=== PATIENT | female | born 1985 | race Caucasian/White ===

== ENCOUNTER 2024-06-03 15:50 | Emergency (ER) | payer SELFPAY ==
[2024-06-03 15:51] VITALS: BP 161/111
[2024-06-03 16:01] VITALS: BMI 37.6
[2024-06-03 16:05] VITALS: BP 140/89
[2024-06-03] MEDS: NSS 1000 IV (16:25)
[2024-06-03] MEDS: ZOFRAN 4 MG IV (16:25)
[2024-06-03 16:29] LABS: % Basophils 0.9 % (0-2); % Eosinophils 0.4 % (0-6); % Immature Granulocytes 0.2 % (0-0.5); % Lymphocytes 47.1 % (20.5-51.1); % Monocytes 8.9 % (1.7-9.3); % Neutrophils 42.5 % (42.2-75.2); Absolute Basophils 0.1 10^3/uL (0-0.2); Absolute Lymphocytes 2.6 10^3/uL (1.2-3.4); Absolute Monocytes 0.5 10^3/uL (0.1-0.6); Absolute Neutrophils 2.3 10^3/uL (1.4-6.5); Hematocrit 43.5 % (37.0-47.0); Hemoglobin 15.2 g/dL (12.0-16.0); Mean Corp Hgb Conc. 34.9 g/dL (33.0-37.0); Mean Corpuscular Volume 88.8 fL (81.0-99.0); Mean Platelet Volume 9.3 fL (7.4-10.4); Nucleated Red Blood Cells % 0 %; Platelet Count 302 10^3/uL (130-400); Red Cell Dist. Width 13.7 % (11.5-14.5); White Blood Cell Count 5.5 10^3/uL (4.8-10.8)
[2024-06-03 16:40] LABS: ALT (SGPT) 66 U/L (0-35); AST (SGOT) 151 U/L (14-36); Albumin 4.2 g/dl (3.5-5.0); Alkaline Phosphatase 146 U/L (38-126); Blood Urea Nitrogen 11 mg/dl (7-17); Calcium 8.7 mg/dl (8.4-10.2); Carbon Dioxide 20 mmol/L (22-30); Chloride 107 mmol/L (98-107); Estimated Creatinine Clearance 112 ml/min; Glucose 132 mg/dl (70-99); Potassium 4.7 mmol/L (3.5-5.1); Sodium 141 mmol/L (135-145); Total Bilirubin 0.5 mg/dl (0.2-1.3); Total Protein 7.1 g/dl (6.3-8.2); eGFR > 60.00
[2024-06-03 16:51] LABS: Lipase 251 U/L (23-300)
--- NOTE | 2024-06-03 16:51 | CM ---
CM met with patient in room to discuss insurance. 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 CM provided patient with information on [facility] and patient financial services.
Patient became tearful stating that she has not been out of bed for 4 days and feels 'terrible'. Patient also stated that she has chronic anxiety and her medical bills are a great concern for her. CM provided emotional support.
CM updated bedside RN.
[2024-06-03 17:00] VITALS: BP 121/84
[2024-06-03 18:00] VITALS: BP 119/94
--- NOTE | 2024-06-03 18:18 | ED.GENMED ---
History of Present Illness
General
Chief Complaint: Abdominal Symptoms
Time Seen by Provider: 06/03/24 15:58
History of Present Illness
History of Present Illness:
38-year-old female with history of GERD presents to the emergency department for evaluation of generalized lower abdominal pain as well as nausea vomiting and diarrhea for the past 4 to 5 days. Pain is quite mild at this time. No recent suspicious
food intake or international travel. Has been unable to tolerate p.o. fluids today and feels weak and fatigued. No prior abdominal surgeries
Past History
Past History
ED Past Medical History: Asthma
ED Past Surgical History: None
Social History
Tobacco: Former smoker
Alcohol: Occasional
Drug: Marijuana
Personal: Single
Living: alone
Employment: Employed
Review of Systems
Review of Systems
Allergies reviewed?: Yes
All Other Systems: ROS reviewed and negative except as documented in HPI and ROS
Phy Exam
Physical Exam
Physical Exam:
GEN: Well appearing, NAD, WDWN
HEENT: Oral mucosa moist, no scleral icterus
Cardiac: Regular rate
Lung: No respiratory distress, no tachypnea
Abdomen: Soft, grossly non tender
MSK: No gross deformity or injuries
Skin: Good color, no pallor or jaundice, no rashes
Neuro: AO x3, moves all extremities freely
Psych: Calm, cooperative
Course
Orders/Labs/Results
Orders:
Orders
06/03/24 16:19
Case Management Consult ONCE
Case Management Consult: Other
Requested By:: NURSING
Comment: PT. with mental health hx and no health insurance.
CMP [Comprehensive Metabolic Panel] Urgent
Complete Blood Count/With Diff Urgent
Lipase Urgent
06/03/24 16:23
0.9% Sodium Chloride 1000 ml [Nss] 1,000 ml IV BOLUS
Ondansetron Injectable [Zofran] 4 mg IV NOW STA
06/03/24 16:24
Ondansetron Injectable [Zofran] 4 mg .ROUTE .STK-MED ONE
Abnormal Lab Results
06/03/24
16:19
Carbon Dioxide 20 L mmol/L
(22-30)
Glucose 132 H mg/dl
(70-99)
AST 151 H U/L
(14-36)
ALT 66 H U/L
(0-35)
Alkaline Phosphatase 146 H U/L
(38-126)
06/03/24 16:19
06/03/24 16:19
Vital Signs
Initial and Last Documented VS:
Initial Vital Signs
Temp Pulse Resp BP Pulse Ox
98.8 F 124 18 161/111 97
06/03/24 15:51 06/03/24 15:51 06/03/24 15:51 06/03/24 15:51 06/03/24 15:51
Last Documented Vital Signs
Temp Pulse Resp BP Pulse Ox
98.8 F 124 18 119/94 99
06/03/24 15:51 06/03/24 15:51 06/03/24 15:51 06/03/24 18:00 06/03/24 18:00
MDM/Problems Addressed
MDM/Problems Addressed:
Patient's abdominal exam is benign, labs are reassuring, she does have mild transaminitis however this is likely reactive due to frequent vomiting as she has no right upper quadrant tenderness warranting biliary workup at this time.
*Critical Care Note
Total Time (30-74mins, 75-104mins- exclusive of procedures): Not Applicable
ED Attending Note
-
Portions of this chart may have been created with voice recognition software.� Occasional wrong word or��sound alike� substitutions may have occurred due to the inherent limitations of voice recognition software.
Discharge Plan
Departure
Patient Disposition: Home (Routine Discharge)
Date of Disposition: 06/03/24
Time of Disposition: 18:18
Patient with high blood pressure during this ER visit?: No
Discharge Problem:
Nausea & vomiting
Instructions: Nausea and Vomiting, Adult (DC)
Prescriptions:
New
ondansetron 4 mg tablet,disintegrating
4 mg PO TIDPRN PRN (Reason: nausea/vomiting) Qty: 10 0RF
No Action
desloratadine [Clarinex] 5 MG tablet
5 mg PO DAILY PRN (Reason: allergies)
albuterol [Proventil] 17 GM aerosol
17 gm IH PRN (Reason: asthma)
sulfamethoxazole-trimethoprim 800 MG/160 MG tablet
1 tab PO BID Qty: 14 0RF
cefadroxil [Duricef] 500 MG capsule
500 mg PO BID Qty: 14 0RF
mupirocin 2 % ointment
1 applic topical TID Qty: 30 1RF
prednisone 20 mg tablet
40 mg PO DAILY Qty: 8 0RF
prednisone 50 mg Tablet
50 mg PO DAILY Qty: 3 0RF
amoxicillin-pot clavulanate 875-125 mg tablet
1 tab PO Q12H Qty: 13 0RF
albuterol sulfate [ProAir HFA] 90 mcg/actuation Hfa Aerosol Inhaler
2 puff INHALATION Q4HPRN PRN (Reason: shortness of breath) Qty: 8.5 0RF
Referrals:
Kasia Donovan PA [Family Provider] -
Stand Alone Forms: Return to Work
Interventions
Interventions:
*Risk Screen - Suicide Last Done: 06/03/24 15:51
*General Assessment Last Done: 06/03/24 15:51
*Neglect/Abuse Screening Last Done: 06/03/24 15:51
*ED- Fall Risk Assessment Last Done: 06/03/24 16:01
*ED COVID-19 Vaccine History Last Done: 06/03/24 15:51
*Nursing Disposition Last Done: 06/03/24 18:26
DC-Dcyhyh-Jdtwgjmgyn Assessment Last Done: 06/03/24 16:01
Discharge Date and Time
Discharge Date/Time: 06/03/24 18:26
Print Language: IRAQI
== END 2024-06-03 18:26 | disposition home or self-care (01) ==
LOC: EMR 15:50
PROVIDERS: Physician Assistant; EMERGENCY PHYSICIAN Emergency Medicine; FAMILY PHYSICIAN Physician Assistant Medical
DX: R11.2 Nausea with vomiting, unspecified (principal); R19.7 Diarrhea, unspecified; K21.9 Gastro-esophageal reflux disease without esophagitis; J45.909 Unspecified asthma, uncomplicated; Z87.891 Personal history of nicotine dependence
CPT/HCPCS: 99283; 96374; 96361; 80053; 83690; 85025

== ENCOUNTER 2024-12-01 21:06 | Inpatient (IN) | payer SELFPAY ==
[2024-12-01 15:49] VITALS: BP 168/118
[2024-12-01 16:20] LABS: Hematocrit 40.4 % (37.0-47.0); Hemoglobin 13.7 g/dL (12.0-16.0); Mean Corp Hgb Conc. 33.9 g/dL (33.0-37.0); Mean Corpuscular Volume 90.4 fL (81.0-99.0); Nucleated Red Blood Cells % 0 %; Platelet Count 142 10^3/uL (130-400); Red Cell Dist. Width 13.5 % (11.5-14.5)
[2024-12-01 16:24] LABS: HCG, Serum Qualitative Screen Negative
[2024-12-01 16:38] LABS: ALT (SGPT) 340 U/L (0-35); Albumin 4.3 g/dl (3.5-5.0); Alkaline Phosphatase 143 U/L (38-126); Blood Urea Nitrogen 7 mg/dl (7-17); Calcium 8.8 mg/dl (8.4-10.2); Carbon Dioxide 22 mmol/L (22-30); Chloride 101 mmol/L (98-107); Glucose 137 mg/dl (70-99); Lipase 299 U/L (23-300); Potassium 3.9 mmol/L (3.5-5.1); Sodium 131 mmol/L (135-145); Total Protein 7.1 g/dl (6.3-8.2); eGFR > 60.00
[2024-12-01 16:41] LABS: AST (SGOT) 1027 U/L (14-36)
--- NOTE | 2024-12-01 17:12 | ED.GENMED ---
History of Present Illness
<Seema Singer NP - Last Filed: 12/01/24 23:55>
General
Chief Complaint: Abdominal Symptoms
Source: patient
Exam Limitations: none
Time Seen by Provider: 12/01/24 17:06
Nursing documentation reviewed up to this point in time: agreed with
History of Present Illness
History of Present Illness:
Patient to ED with complaint of upper abd. pain, n/v. Symptoms started on Friday evening. States she has been unable to eat or drink due to n/v. No prior history of same. Denies fever/chills. Brought self to ED for eval.
Past History
<Seema Singer NP - Last Filed: 12/01/24 23:55>
Past History
ED Past Medical History: Asthma
ED Past Surgical History: Other (Misty Fundoplication age 3)
Social History
Tobacco: Former smoker
Alcohol: Occasional
Drug: Marijuana
Personal: Single
Living: alone
Employment: Employed
Review of Systems
<Seema Singer NP - Last Filed: 12/01/24 23:55>
Review of Systems
Allergies reviewed?: Yes
All Other Systems: ROS reviewed and negative except as documented in HPI and ROS
Constitutional: Reports no symptoms
EENT: Reports no symptoms
Respiratory: Reports no symptoms
Cardiac: Reports no symptoms
ABD/GI: Reports abdominal pain (upper abd.), nausea and vomiting
: Reports no symptoms
Musculoskeletal: Reports no symptoms
Skin: Reports no symptoms
Neurological: Reports no symptoms
Psychiatric: Reports no symptoms
Phy Exam
<Seema Singer NP - Last Filed: 12/01/24 23:55>
General Physical Exam
General Presentation: moderate distress
General age: appears stated age
General Skin: warm and dry
General Habitus: normal
General Mental: alert
General Hydration: dry mucous membranes
Course
<Seema Singer NP - Last Filed: 12/01/24 23:55>
Orders/Labs/Results
Orders:
Orders
12/01/24 Dinner
Clear Liquid
At Your Request: Full Participation
12/01/24 15:53
Test Result ONCE
12/01/24 15:56
Complete Blood Count/With Diff Urgent
Comprehensive Metabolic Panel Urgent
HCG, Serum Qualitative Screen Urgent
Lipase Urgent
Monotest Urgent
Comment: ADD ON
12/01/24 17:13
0.9% Sodium Chloride 1000 ml [Nss] 1,000 ml IV BOLUS
Ondansetron Injectable [Zofran] 4 mg IV NOW STA
US Abdomen Complete/Upper Urgent
Comment:
Reason For Exam: upper abd. pain, elevated LFTs, tbili
12/01/24 17:14
Add On- LAB Urgent
Tests Added?: HCG serum qualitative
12/01/24 17:27
Add On- LAB Urgent
Tests Added?: mononucleosis
12/01/24 17:44
Hepatitis A IgM Antibody Urgent
Hepatitis B Core Ab, IgM Urgent
Hepatitis B Surface Antibody Urgent
Hepatitis B Surface Antigen Urgent
Hepatitis C Antibody Urgent
12/01/24 18:41
Urinalysis Reflex To Culture Urgent
Date Specimen was Collected: 12/01/24
Time Specimen was Collected: 18:33
Urine Microscopic Reflex Cult Urgent
Urine Culture Urgent
JASMEET Source: U
Specimen Description:
Date Specimen was Collected: 12/01/24
Time Specimen was Collected: 18:33
12/01/24 20:43
Admit/Transfer Patient As Directed
Co-Sign Provider:
Level of Care: Inpatient admission
Assign to:: Medical/Surgical
Physician / Group: lani
Diagnosis: choledocolithiasis
Reason for Hospitalization: choledocolithiasis
Expected length of stay greater than two midnights?: Yes
ELOS- Estimated Length of Stay in days: 2
I certify the patient meets the requirements for IP care: Yes
Code Status As Directed
Resuscitation Status: Full Code
PRN Pain Medication Management As Directed
May give lesser potent ordered pain med per pt: Yes
preference::
Protocol:: Medication orders for pain may be administered in a
manner that supports deferring to patient preference
when the pt is:
- Requesting an ordered lesser potent pain medication.
Least to most potent pain medications are defined
as: acetaminophen < NSAID < tramadol < opioids
(morphine, oxycodone, hydromorphone).
- Requesting a lesser dose of the same medication IF
ORDERED.
- Requesting a less intrusive route of administration
if both routes are prescribed by the provider (PO <
IV).
12/01/24 21:43
Acetaminophen [Tylenol] 650 mg PO Q4HPRN PRN
Albuterol [ProAIR HFA INHALER] 2 puff INH R Q6HPRN PRN sob
HYDROmorphone [Dilaudid] 0.5 mg IV Q4HPRN PRN
Ondansetron Injectable [Zofran] 4 mg IV Q6HPRN PRN
12/01/24 21:43
Activity As Directed
Activity Level: As Tolerated
Vital Signs As Directed
Frequency: Per unit guidelines
DX Deep Vein Thrombosis Video Routine
12/02/24 08:00
Complete Blood Count/With Diff IN AM
Comprehensive Metabolic Panel IN AM
Escitalopram Oxalate [Lexapro] 5 mg PO DAILY
Heparin 5,000 units SC Q12
Abnormal Lab Results
12/01/24 12/01/24
15:56 18:41
Absolute Lymphs (auto) 1.0 L 10^3/uL
(1.2-3.4)
Neutrophils % 83.0 H %
(42.2-75.2)
Lymphocytes % 14.4 L %
(20.5-51.1)
Monocytes % 1.3 L %
(1.7-9.3)
Sodium 131 L mmol/L
(135-145)
Glucose 137 H mg/dl
(70-99)
Total Bilirubin 2.2 H mg/dl
(0.2-1.3)
AST 1027 H* U/L
(14-36)
ALT 340 H U/L
(0-35)
Alkaline Phosphatase 143 H U/L
(38-126)
Urine Ketones 3+ A
(Negative)
Ur Occult Blood Reflex 2+ A
(Negative)
Urine Nitrite (Reflex) Positive A
(Negative)
Urine Bilirubin 1+ A
(Negative)
Urine Urobilinogen 2+ A
(Neg - 1+)
Leukocyte Esterase Rfl 1+ A
(Negative)
Urine RBC 3-6 A /HPF
(0-2)
Urine Bacteria (Reflex) Many A
(Negative)
Urine Albumin (Reflex) 2+ A
(Neg - Trace)
12/01/24 15:56
12/01/24 15:56
Vital Signs
Initial and Last Documented VS:
Initial Vital Signs
Temp Pulse Resp BP Pulse Ox
98.4 F 115 16 168/118 98
12/01/24 15:49 12/01/24 15:49 12/01/24 15:49 12/01/24 15:49 12/01/24 15:49
Last Documented Vital Signs
Temp Pulse Resp BP Pulse Ox
99.1 F 82 16 136/98 99
12/02/24 07:10 12/02/24 07:10 12/02/24 07:10 12/02/24 07:10 12/02/24 07:10
<Aneul Powers MD - Last Filed: 12/02/24 11:03>
Orders/Labs/Results
Orders:
Orders
12/01/24 Dinner
Clear Liquid
At Your Request: Full Participation
12/01/24 15:53
Test Result ONCE
12/01/24 15:56
Complete Blood Count/With Diff Urgent
Comprehensive Metabolic Panel Urgent
HCG, Serum Qualitative Screen Urgent
Lipase Urgent
Monotest Urgent
Comment: ADD ON
12/01/24 17:13
0.9% Sodium Chloride 1000 ml [Nss] 1,000 ml IV BOLUS
Ondansetron Injectable [Zofran] 4 mg IV NOW STA
US Abdomen Complete/Upper Urgent
Comment:
Reason For Exam: upper abd. pain, elevated LFTs, tbili
12/01/24 17:14
Add On- LAB Urgent
Tests Added?: HCG serum qualitative
12/01/24 17:27
Add On- LAB Urgent
Tests Added?: mononucleosis
12/01/24 17:44
Hepatitis A IgM Antibody Urgent
Hepatitis B Core Ab, IgM Urgent
Hepatitis B Surface Antibody Urgent
Hepatitis B Surface Antigen Urgent
Hepatitis C Antibody Urgent
12/01/24 18:41
Urinalysis Reflex To Culture Urgent
Date Specimen was Collected: 12/01/24
Time Specimen was Collected: 18:33
Urine Microscopic Reflex Cult Urgent
Urine Culture Urgent
JASMEET Source: U
Specimen Description:
Date Specimen was Collected: 12/01/24
Time Specimen was Collected: 18:33
12/01/24 20:43
Admit/Transfer Patient As Directed
Co-Sign Provider:
Level of Care: Inpatient admission
Assign to:: Medical/Surgical
Physician / Group: lani
Diagnosis: choledocolithiasis
Reason for Hospitalization: choledocolithiasis
Expected length of stay greater than two midnights?: Yes
ELOS- Estimated Length of Stay in days: 2
I certify the patient meets the requirements for IP care: Yes
Code Status As Directed
Resuscitation Status: Full Code
PRN Pain Medication Management As Directed
May give lesser potent ordered pain med per pt: Yes
preference::
Protocol:: Medication orders for pain may be administered in a
manner that supports deferring to patient preference
when the pt is:
- Requesting an ordered lesser potent pain medication.
Least to most potent pain medications are defined
as: acetaminophen < NSAID < tramadol < opioids
(morphine, oxycodone, hydromorphone).
- Requesting a lesser dose of the same medication IF
ORDERED.
- Requesting a less intrusive route of administration
if both routes are prescribed by the provider (PO <
IV).
12/01/24 21:43
Acetaminophen [Tylenol] 650 mg PO Q4HPRN PRN
Albuterol [ProAIR HFA INHALER] 2 puff INH R Q6HPRN PRN sob
HYDROmorphone [Dilaudid] 0.5 mg IV Q4HPRN PRN
Ondansetron Injectable [Zofran] 4 mg IV Q6HPRN PRN
12/01/24 21:43
Activity As Directed
Activity Level: As Tolerated
Vital Signs As Directed
Frequency: Per unit guidelines
DX Deep Vein Thrombosis Video Routine
12/02/24 08:00
Complete Blood Count/With Diff IN AM
Comprehensive Metabolic Panel IN AM
Escitalopram Oxalate [Lexapro] 5 mg PO DAILY
Heparin 5,000 units SC Q12
Abnormal Lab Results
12/01/24 12/01/24
15:56 18:41
Absolute Lymphs (auto) 1.0 L 10^3/uL
(1.2-3.4)
Neutrophils % 83.0 H %
(42.2-75.2)
Lymphocytes % 14.4 L %
(20.5-51.1)
Monocytes % 1.3 L %
(1.7-9.3)
Sodium 131 L mmol/L
(135-145)
Glucose 137 H mg/dl
(70-99)
Total Bilirubin 2.2 H mg/dl
(0.2-1.3)
AST 1027 H* U/L
(14-36)
ALT 340 H U/L
(0-35)
Alkaline Phosphatase 143 H U/L
(38-126)
Urine Ketones 3+ A
(Negative)
Ur Occult Blood Reflex 2+ A
(Negative)
Urine Nitrite (Reflex) Positive A
(Negative)
Urine Bilirubin 1+ A
(Negative)
Urine Urobilinogen 2+ A
(Neg - 1+)
Leukocyte Esterase Rfl 1+ A
(Negative)
Urine RBC 3-6 A /HPF
(0-2)
Urine Bacteria (Reflex) Many A
(Negative)
Urine Albumin (Reflex) 2+ A
(Neg - Trace)
12/01/24 15:56
12/01/24 15:56
Vital Signs
Initial and Last Documented VS:
Initial Vital Signs
Temp Pulse Resp BP Pulse Ox
98.4 F 115 16 168/118 98
12/01/24 15:49 12/01/24 15:49 12/01/24 15:49 12/01/24 15:49 12/01/24 15:49
Last Documented Vital Signs
Temp Pulse Resp BP Pulse Ox
99.1 F 82 16 136/98 99
12/02/24 07:10 12/02/24 07:10 12/02/24 07:10 12/02/24 07:10 12/02/24 07:10
<Seema Singer NP - Last Filed: 12/01/24 23:55>
*Radiology
Radiology exam reviewed: radiology read reviewed
*Pulse Oximetry
SaO2: 98
Oxygen Mode of Delivery: Room air
Patient hypoxic: no
*Critical Care Note
Total Time (30-74mins, 75-104mins- exclusive of procedures): Not Applicable
<Seema Singer NP - Last Filed: 12/01/24 23:55>
Update Note
Update Note:
patient to ED with complaint of upper abd. pain, n/v x 3 days. Labs reviewed. AST 1027. ALT 340. Alk phos 143 Tbili 2.2 [place] neg. Hepatitis panel pending. Abdominal US Mild hepatomegaly, hepatic fatty infiltration. Bile ducts, gallbladder
normal. Case discussed with Dr. Powers who also evaluated this patient. Will admit to hospitalist for LFT elevation, abdominal pain/vomiting dehydration.
ED Attending Note
<Seema Singer NP - Last Filed: 12/01/24 23:55>
-
Portions of this chart may have been created with voice recognition software.� Occasional wrong word or��sound alike� substitutions may have occurred due to the inherent limitations of voice recognition software.
<Anuel Powers MD - Last Filed: 12/02/24 11:03>
ED Attending Note
Patient seen and examined by attending physician: Yes
ED Attending Note:
Patient presents to ED secondary to 3-day history of persistent nausea, vomiting, along with 24 history of diarrhea. Patient started to experience abdominal cramping sensation today. Of note, over the weekend, patient did experience chills and
body ache along with URI symptoms, which now have improved. Denies headache. Denies neck pain. Denies sore throat. Denies coughing. Denies rash. Denies recent travel or surgery. Denies sick contact. Denies previous history of similar
symptoms.
Physical Exam
General: mild distress, not acutely ill. afebrile
Head: nc/at. eomi
Neck: supple. no meningeal signs. normal posterior pharynx
Heart: s1/s2 regular rate and rhythm
Lungs: no acute respiratory distress. clear bilaterally
Abdomen: normal bowel sounds. not tender. mild epigastric tenderness to palpation
Neuro: alert and oriented x 3. no focal neurological deficits
Skin: no rash
Psychiatric: well kept. interactive and cooperative
Extremities: no edema. no calf tenderness.
Blood work reviewed and discussed with patient. Abdominal ultrasound pending. Will check mono as well as hepatitis panel.
Abd US report reviewed. Pt will be admitted for further evaluation and treatment, with abnormal LFTs with continual symptoms.
Discharge Plan
Departure
Patient Disposition: Admit
Date of Disposition: 12/01/24
Time of Disposition: 20:19
Presentation/result/management discussed w/ accepting MD/DO: Hospitalist
Patient with high blood pressure during this ER visit?: No
Condition: Fair
Covid-19: Not Applicable
Discharge Problem:
Elevated LFTs, Vomiting
Interventions
Interventions:
*Risk Screen - Suicide Last Done: 12/01/24 21:45
*General Assessment Last Done: 12/01/24 15:49
*Neglect/Abuse Screening Last Done: 12/01/24 15:49
*ED- Fall Risk Assessment Last Done: 12/01/24 15:49
*ED COVID-19 Vaccine History Last Done: 12/01/24 21:45
*Nursing Disposition Last Done: 12/01/24 21:57
KZ-Ccwqgb-Yxhnibfkcv Assessment Last Done: 12/01/24 17:11
Discharge Date and Time
Discharge Date/Time: 12/01/24 21:58
[2024-12-01] MEDS: ZOFRAN 4 MG IV (17:20)
[2024-12-01] MEDS: NSS 1000 IV (17:20)
[2024-12-01 18:00] VITALS: BP 127/100
[2024-12-01 18:49] LABS: Urine Character Cloudy (Clear)
[2024-12-01 19:04] LABS: Urine Squamous Cell >30 /LPF (Few)
--- NOTE | 2024-12-01 20:45 | HPS.HSE ---
Family Physician
-
Family Physician: Missy Servin
Chief Complaint
-
abdminal pain
History of Present Illness
39-year-old female past medical history of asthma, depression, hiatal hernia/GERD status post Misty fundoplication as a child presenting with epigastric abdominal pain and nausea and vomiting starting 2 days ago as well as diarrhea. 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 No fevers or chills. She has been eating very minimally. She denies any history of gallstones. No recent travel history.
She has had pain like this in the past precipitated by eating certain foods. Her mother had her gallbladder taken out.
Denies smoking or alcohol use. Did use marijuana in the past.
Medical History
Past Medical History
Past Medical History: Reports Other (asthma, depression, hiatal hernia/GERD status post Misty fundoplication as a child)
Past Surgical History: Reports Other ( Bilateral knee surgery, sinus surgery, tonsillectomy, Misty fundoplication)
Social History
Tobacco: Non-smoker
Alcohol: None
Drug: None
Family History
Family History: Not pertinent
Allergies / Home Medications
Allergies reflects when Allergies were last updated in [employer].
Home Medications with original date entered in [employer]
Allergy/Medication List:
Allergies
Allergy/AdvReac Type Severity Reaction Status Date / Time
clarithromycin (From Biaxin) Allergy Nausea Verified 12/01/24 15:52
ibuprofen Allergy Hives Verified 12/01/24 15:52
latex Allergy Rash Verified 12/01/24 15:52
biaxin Allergy Nausea Uncoded 12/01/24 15:52
Home Medications
albuterol sulfate 90 mcg/actuation aerosol inhaler 2 puff inhalation R Q6HPRN PRN sob 12/01/24
escitalopram oxalate 5 mg tablet (Lexapro) 5 mg PO DAILY 12/01/24
Review of Systems
-
Constitutional: Reports No Symptoms
EENT: Reports No Symptoms
Respiratory: Reports No Symptoms
Cardiac: Reports No Symptoms
Abdomen/GI: Reports See HPI
: Reports No Symptoms
Musculoskeletal: Reports No Symptoms
Skin: Reports No Symptoms
Neurological: Reports No Symptoms
Endocrine: Reports No Symptoms
Hematologic/Lymphatic: Reports No Symptoms
Psych: Reports No Symptoms
Physical Exam
Vital Signs
Vital Signs
Temp Pulse Resp BP Pulse Ox
98.4 F 115 16 127/100 97
12/01/24 15:49 12/01/24 15:49 12/01/24 15:49 12/01/24 18:00 12/01/24 18:30
Physical Exam
General: Well Developed, Well Nourished and No Apparent Distress
HEENT: NormoCephalic, Moist mucous membranes and Atraumatic
Respiratory: Clear
Cardiac: S1/S2 and Regular Rhythm; No Murmur or Rub
GI: Soft, Non Distended, Normal Bowel Sounds and Tender (epigastric ); No Organomegaly
Rectal: Deferred by Provider
Musculoskeletal: No Clubbing, No Cyanosis and No Edema
Skin: No Rash
Neuro: Nonfocal/grossly intact
Laboratory Results
-
12/01/24 15:56
12/01/24 15:56
Laboratory Results
Total Bilirubin 2.2 mg/dl (0.2-1.3) H 12/01/24 15:56
AST 1027 U/L (14-36) H* 12/01/24 15:56
ALT 340 U/L (0-35) H 12/01/24 15:56
Alkaline Phosphatase 143 U/L (38-126) H 12/01/24 15:56
Lipase 299 U/L (23-300) 12/01/24 15:56
Data Reviewed
-
Lab Data: Labs Reviewed by me
Old Records: Reviewed
Impression/Plan
-
IMPRESSION:
PLAN:
# Likely acute choledocholithiasis
# Transaminitis/hyperbilirubinemia
- Ultrasound liver shows mild hepatomegaly, gallbladder is physiologically distended fluid and shows no shadowing calculi or wall thickening, common bile duct 5 mm
- Hepatitis panel pending
- Check MRI/MRCP abdomen
- GI consulted
- Clear liquid diet
- Hold off antibiotics for now
- Zofran, Dilaudid as needed
Asthma
- Continue albuterol
Anxiety/depression
- Continue Lexapro
GERD/hiatal hernia status post Misty fundoplication as a child
Full code
DVT prophylaxis�heparin
Regular diet
--- NOTE | 2024-12-01 21:42 | PTCARENOTE ---
Pt arrived to [address] [place] [address] at 2142. Ambulated from stretcher to bed w/o complication. AAOx3, VSS. Admission assessment completed. Pt with no complaints of pain or nausea. Pt oriented to room, call araujo within reach, bed locked and in lowest position.
Clear liquid diet. Plan for MRI/MRCP tomorrow. Plan of care reviewed with patient, all questions answered. Care ongoing.
[2024-12-01 21:44] VITALS: BMI 37.9
[2024-12-01 21:55] VITALS: BP 149/98
[2024-12-02] MEDS: NSS 1000 IV ×2 (01:43→12:34)
[2024-12-02 07:10] VITALS: BP 136/98
--- NOTE | 2024-12-02 07:29 | CON.GI ---
Addendum entered and electronically signed by Lidia Morales Do, MD 12/02/24 09:59:
I saw and examined the patient.
The JACK SPINNER's note was reviewed and I agree with the note.
Comment: Mine is a 39yo W with h/o GERD with recurrent reflux s/p Misty fundoplication at age of 2.5yo who presents with worsening epigastric abd pain with N/V. This started 3-4 days ago. She's had similar pains intermittently throughout
summer but worse now. Does not identify trigger such as new meds, change diet or travel. She did have URI with BF last week and used OTC alkaseltzer. Vitals stable exam obese epigastric TTP, NABS. Labs reviewed
Impression
- Intermittent epigastric abd pain with N/V
suspect biliary colic with possible choledocholithiasis
- Elevated LFTs
Pleasants neg, denies herbals/ETOH or risk factors for viral hepatitis
- Low platelets
- H/o Misty
- H/o GERD
- Obesity
- Asthma
Recommendations
- Recommend MRI/MRCP
- Appreciate surgical recs
- Trend LFTs
- Anticipate CLD post MRI if ok with surgery
- Protonix 40mg IV daily basis
- Anti-emetics
Will follow with you
Original Note:
Consultation
-
Date/Time Consultation Requested: 12/01/24 2250
Date/Time Consultation Performed: 12/02/24 0855
Requesting Provider: Gerson Tang MD
Performing Provider: LILIA Bolaños, Lidia Morales MD
Reason for Consultation: abdominal pain
Medical History
Chief Complaint / HPI
Chief Complaint: abdominal pain
History of Present Illness:
Pt is a 39yo with hx asthma, anxiety, GERD with prior Misty Fundoplication at age 2 1/2 (pt recall hx asthma and aspiration PNA prior to surgery), prior knee surgery, anxiety, depression with wt gain over last 2 years. She began with episode on
October with abdominal pain and vomiting and now recurrent episode. Symptoms occur about 15 minutes after eating. On admission noted iwth bili 2.2, AST 1027, ALT 340, alk phos 143-- with noted prior elevation in May. Pt also noted with drop in
Platelets to 105 after admission. US with noted hepatomegaly and fatty infiltration, GB distended without stone or thickening, CBD 5 mm. She has seen GI MD in distant past with hx prior EGD, UGI testing with hx misty and GERD. She admits pain
is sharp and feeling of pressure. She did see dark urine and li stools but denies dysphagia, diarrhea, blood or black in stools. No anticoagulation. + few doses onf Aleve as needed monthly for menstrual cramps. + ETOH social on weekends.
Past Medical History
Past Medical History: Asthma, GERD, Psychiatric (depression) and Other (Hiatal hernia )
Past Surgical History: Orthopedic (b/l Knee surgery ), Tonsilectomy and Other (misty Funoplication as child )
Social History
Tobacco: Non-Smoker
Alcohol: Occasional (WE's several drinks )
Drug: None
Personal: Other (boyfriend )
Living: Other (boyfriend )
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
Family History
Family History: Reviewed & Not Pertinent
Allergies / Home Medications
Allergy/AdvReac Type Severity Reaction Status Date / Time
clarithromycin (From Biaxin) Allergy Nausea-severe Verified 12/01/24 21:45
nausea,stomach
upset
ibuprofen Allergy Hives Verified 12/01/24 15:52
latex Allergy Rash Verified 12/01/24 15:52
�Medication �Instructions �Recorded
albuterol sulfate 90 mcg/actuation 2 puff inhalation R Q6HPRN PRN sob 12/01/24
aerosol inhaler
escitalopram oxalate 5 mg tablet 5 mg PO DAILY 12/01/24
(Lexapro)
Review of Systems
-
History Source: Patient
Constitutional: Reports Weight Gain ( 50 lbs 2 years with some recent few lbs loss with symptoms )
EENT: Reports No Symptoms
Respiratory: Reports No Symptoms
Cardiac: Reports No Symptoms
Abdomen/GI: Reports Abdominal Pain, Nausea, Vomiting and Other (li stools)
: Reports Dark Urine
Musculoskeletal: Reports No Symptoms
Skin: Reports No Symptoms
Neurological: Reports No Symptoms
Endocrine: Reports No Symptoms
Hematologic/Lymphatic: Reports No Symptoms
Vital Signs
Temp Pulse Resp BP Pulse Ox
98.9 F 89 15 149/98 100
12/01/24 21:55 12/01/24 21:55 12/01/24 21:55 12/01/24 21:55 12/01/24 21:55
Physical Exam
Exam
General: Well Developed, Well Nourished and No Apparent Distress
HEENT: Other (slight jaundice )
Respiratory: Clear
Cardiac: Regular Rhythm
GI: Soft, Non Distended and Tender (minimal )
Musculoskeletal: No Clubbing and No Cyanosis
Skin: Warm and Dry
Neuro: Awake, Alert and AO x 3
Psych: Calm
Results
WBC 7.0 10^3/uL (4.8-10.8) 12/01/24 15:56
Hgb 13.7 g/dL (12.0-16.0) 12/01/24 15:56
Hct 40.4 % (37.0-47.0) 12/01/24 15:56
MCV 90.4 fL (81.0-99.0) 12/01/24 15:56
Plt Count 142 10^3/uL (130-400) 12/01/24 15:56
Absolute Neuts (auto) 5.8 10^3/uL (1.4-6.5) 12/01/24 15:56
Sodium 131 mmol/L (135-145) L 12/01/24 15:56
Potassium 3.9 mmol/L (3.5-5.1) 12/01/24 15:56
Chloride 101 mmol/L (98-107) 12/01/24 15:56
Carbon Dioxide 22 mmol/L (22-30) 12/01/24 15:56
BUN 7 mg/dl (7-17) 12/01/24 15:56
Creatinine 0.6 mg/dL (0.6-1.0) 12/01/24 15:56
Calcium 8.8 mg/dl (8.4-10.2) 12/01/24 15:56
Total Bilirubin 2.2 mg/dl (0.2-1.3) H 12/01/24 15:56
AST 1027 U/L (14-36) H* 12/01/24 15:56
ALT 340 U/L (0-35) H 12/01/24 15:56
Alkaline Phosphatase 143 U/L (38-126) H 12/01/24 15:56
Lipase 299 U/L (23-300) 12/01/24 15:56
Diagnostic Image Results:
12/01/24 US abdomen
FINDINGS: The liver is increased in size, measuring 19.3 cm in length. It is increased in echogenicity. There is no focal hepatic lesion or intrahepatic biliary dilation. The gallbladder is physiologically distended with fluid and shows no shadowing
calculi or wall thickening. The common duct is normal, measuring 5 mm. The pancreas is normal in size and echogenicity and shows no focal mass or calcification. The spleen is normal in size and shows no focal abnormality. Survey evaluation of the
kidneys shows no hydronephrosis. No free fluid is seen in the abdomen. The proximal IVC and abdominal aorta are unremarkable.
IMPRESSION: Mild hepatomegaly
Hepatic fatty infiltration.
Prior GI Procedures:
EGD: several in past with hx misty and GERD
Colonoscopy: none
Assessment / Plan
-
Pt is a 39yo with hx asthma, anxiety, GERD with prior Misty Fundoplication at age 2 1/2 (pt recall hx asthma and aspiration PNA prior to surgery), prior knee surgery, anxiety, depression with wt gain over last 2 years. She began with episode on
October with abdominal pain and vomiting and now recurrent episode. Symptoms occur about 15 minutes after eating. On admission noted iwth bili 2.2, AST 1027, ALT 340, alk phos 143-- with noted prior elevation in May. Pt also noted with drop in
Platelets to 105 after admission. US with noted hepatomegaly and fatty infiltration, GB distended without stone or thickening, CBD 5 mm. She has seen GI MD in distant past with hx prior EGD, UGI testing with hx misty and GERD. She admits pain
is sharp and feeling of pressure. She did see dark urine and li stools but denies dysphagia, diarrhea, blood or black in stools. No anticoagulation. + few doses onf Aleve as needed monthly for menstrual cramps. + ETOH social on weekends.
-epigastric pain with nausea and vomiting
-elevated LFT's with prior elevation in past
-hx GERD- misty fundoplication at age 2 1/2
-thrombocytopenia after admission
-social ETOH use
-wt gain
-fatty liver
other med problems:
-asthma
-anxiety/depression
-prior knee surgery
PLAN:
etiology of symptoms related to biliary - choledocholithiasis with abdominal pain and vomiting with rise in LFT's, Misty related vs underlying liver issue vs other
US as noted
for MRI with MRCP
hepatitis pending, monoscreen neg
NPO til MRI reviewed if + stone then may need ERCP
trend LFT's and Platelets with some drop after admission
if MRI neg and vomiting persistent consider UGI/EGD eval for hx misty and further serology work up
OP follow up for fatty liver
ETOH abstience
-
-
Thank you for consultation and allowing me to participate in the patient's care. Please call the carbonation tester GI physician during the after hours with any questions or concerns.
--- NOTE | 2024-12-02 08:07 | CON.HOSP ---
Addendum entered and electronically signed by Gopal Phillips MD 12/02/24 12:24:
Choledocholithiasis with likely biliary colic
MRCP plus minus ERCP
Surgery consult
Trend LFTs
PPI
Antiemetics
Analgesia
Transaminitis with an indirect hyperbilirubinemia
Trend lfts
Check MRCP
Unlikely a ductal issue (PBS), would expect direct hyperbilirubinemia
Thrombocytopenia�acute/new
Could be dilutional
Will follow
Can check B12 folate HCV
Peripheral smear
Hypokalemia
Replete
Original Note:
Family Physician
-
Family Physician: Missy Servin
Chief Complaint
-
abdominal pain, nausea, vomiting
History of Present Illness
39yoF PMH asthma, depression, remote hiatal hernia s/p david fundoplication presenting with abdominal pain, nausea, vomiting, diarrhea.
Pt describes about 3 days of abdominal pain with accompanied yellow emesis, light colored stools, and dark urine. She reports a 'head cold' over the weekend with resolution by Friday when she began having the abdominal pain. She describes the pain
as deep, crampy in the shape of a constantin shape in the epigastric region. Denies RUQ pain. Reports david fundoplication was when she was 2.5 years old. She has had diet dependent GERD since then but denies other complications. Denies fever, chills.
She stated her last meal before becoming sick was a home cooked meal that was not particularly fatty. Denies pain correlated to fatty foods.
Presented to ED 06/03/24 with similar symptoms of nausea, vomiting, abdominal pain. She reports the pain went away at that time and her liver enzymes were not as elevated. Gallstones were not found at that time. Discharged home with zofran.
Medical History
Past Medical History
Past Medical History: Reports Asthma and Psychiatric
Past Surgical History: Reports Other (david fundoplication)
Allergies / Home Medications
Allergies reflects when Allergies were last updated in [facility].
Home Medications with original date entered in [facility]
Allergy/Medication List:
clarithromycin
ibuprofen
latex
Physical Exam
Vital Signs
Vital Signs
Temp Pulse Resp BP Pulse Ox
99.1 F 82 16 136/98 99
12/02/24 07:10 12/02/24 07:10 12/02/24 07:10 12/02/24 07:10 12/02/24 07:10
Physical Exam
General: Well Developed, Well Nourished and No Apparent Distress
HEENT: Normocephalic, Anicteric and Moist Mucous Membranes
Respiratory: Clear and Non Labored Respirations
Cardiac: S1/S2 and Regular Rhythm
GI: Soft, Non Tender (no guarding or rebound, stated tenderness to deep palpation of epigastric,) and Non Distended
Skin: Warm and Dry
Neuro: AO x 3, No Motor Deficits and Nonfocal/Grossly Intact
Psych: Calm
Laboratory Results
-
Total Bilirubin 2.2 mg/dl (0.2-1.3) H 12/01/24 15:56
AST 1027 U/L (14-36) H* 12/01/24 15:56
ALT 340 U/L (0-35) H 12/01/24 15:56
Alkaline Phosphatase 143 U/L (38-126) H 12/01/24 15:56
Lipase 299 U/L (23-300) 12/01/24 15:56
Impression / Plan
-
IMPRESSION:
39yoF PMH asthma, depression, remote hiatal hernia s/p david fundoplication presenting with new abdominal pain, vomiting, light stools, and dark urine concerning for choledocholithiasis.
Hx of similar symptoms self resolved about 6 months ago. Presents with elevated AST 1040, ALT 371, ALP 129, Tbili 1.7, Direct 0.7 Indicative of choledocholithiasis without concern for pancreatitis or infection. US demonstrated gallbladder distention
with common bile duct 5mm. MRCP pending. No leukocytosis WBC 5.6.
PLAN:
#Transaminitis
#Possible choledocholithiasis
- Pale stools, dark urine, elevated Bilirubin, nausea and vomiting indicative of choledocholithiasis. US negative.
- MRCP pending. If positive, GI following for possible ERCP.
- Replete electrolytes as needed.
- Observe off antibiotics. No WBC or fever, low suspicion for infectious etiology.
#Nausea, vomiting
- PRN zofran
- NPO. Continue maintenance IVF.
#Asthma
- PRN home albuterol
#Depression
- Stable on home lexapro
DVT prophylaxis: Heparin
Diet: NPO
[2024-12-02] MEDS: HEPARIN 5000 UNITS SC ×2 (08:29→20:20)
[2024-12-02 08:35] LABS: Hematocrit 39.9 % (37.0-47.0); Hemoglobin 13.6 g/dL (12.0-16.0); Mean Corp Hgb Conc. 34.1 g/dL (33.0-37.0); Mean Corpuscular Volume 93.2 fL (81.0-99.0); Nucleated Red Blood Cells % 0 %; Platelet Count 105 10^3/uL (130-400); Red Cell Dist. Width 13.8 % (11.5-14.5)
[2024-12-02 10:08] LABS: INR 0.97; PT 13.4 Sec (11.4-14.6)
[2024-12-02 10:09] LABS: ALT (SGPT) 371 U/L (0-35); Albumin 4.4 g/dl (3.5-5.0); Alkaline Phosphatase 129 U/L (38-126); Blood Urea Nitrogen 4 mg/dl (7-17); Calcium 8.8 mg/dl (8.4-10.2); Carbon Dioxide 25 mmol/L (22-30); Chloride 102 mmol/L (98-107); Estimated Creatinine Clearance 112 ml/min; Glucose 100 mg/dl (70-99); Potassium 3.3 mmol/L (3.5-5.1); Sodium 135 mmol/L (135-145); Total Protein 7.3 g/dl (6.3-8.2); eGFR > 60.00
[2024-12-02 10:23] LABS: AST (SGOT) 1040 U/L (14-36)
--- NOTE | 2024-12-02 10:43 | CM ---
CM following re: discharge planning.
Reviewed pt's chart, met with pt.
Pt is a 39 year old female, admitted with primary dx of Abdominal pain. Likely acute choledocholithiasis.
Pt reports she lives with a boyfriend in an apartment, no steps, has no children, has a dog. 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
Pt has no insurance and pt stated she just got a new job and her working insurance will start in January. In meantime pt applying for insurance to [employer]. YUEI following.
PCP: [facility].
Pharmacy: [facility].
D/C plan: home with no needs anticipated. Boyfriend to transport at discharge.
CM will follow with discharge plan updates as hospitalization progresses
[2024-12-02 11:49] VITALS: BMI 37.9
[2024-12-02] MEDS: LEXAPRO 5 MG PO (12:18)
[2024-12-02] MEDS: KCL 40 MEQ PO (12:18)
[2024-12-02 15:17] VITALS: BP 143/85
--- NOTE | 2024-12-02 15:57 | PN.CDI ---
CDI
- -
CDI:
Physician Documentation Request
Admit Date: 12/01/24 21:06
Dear Doctor Betina,
Clinical Indicators:
Patient admitted with abdominal pain, nausea and vomiting.
IVF NSS 1L bolus + ongoing fluids at 80 ml/hr
Sodium level on admission:
12/01/24
15:56
Sodium 131 L
Based on the above, could you clarify in the progress notes, the appropriate diagnosis, if significant, that supports the above abnormalities and additional evaluation, monitoring and/or treatment rendered:
Hyponatremia, resolved
Abnormal lab value, clinically insignificant
Other, please specify
Use of terms such as suspected, likely, concern for, or probable (associated with a specific diagnosis that is being evaluated, monitored, or treated as if it exists) are acceptable and can be coded in the inpatient setting, when documented at the
time of discharge.
Thank you,
CULLEN Mata RN
CDI Specialist
available via tiger text
Please use your independent medical judgment in providing your response.
[2024-12-02 16:40] LABS: Hepatitis B Surface Antigen Negative (Negative)
[2024-12-02 19:59] LABS: Hepatitis C Antibody Negative (Negative)
[2024-12-02 23:06] VITALS: BP 140/97
[2024-12-03] MEDS: NSS 1000 IV (02:21)
[2024-12-03 06:19] LABS: Hematocrit 37.7 % (37.0-47.0); Hemoglobin 12.4 g/dL (12.0-16.0); Mean Corp Hgb Conc. 32.9 g/dL (33.0-37.0); Mean Corpuscular Volume 95.7 fL (81.0-99.0); Platelet Count 90 10^3/uL (130-400); Red Cell Dist. Width 13.8 % (11.5-14.5)
[2024-12-03 06:21] LABS: ALT (SGPT) 255 U/L (0-35); AST (SGOT) 555 U/L (14-36); Albumin 3.8 g/dl (3.5-5.0); Alkaline Phosphatase 105 U/L (38-126); Blood Urea Nitrogen < 2 mg/dl (7-17); Calcium 8.0 mg/dl (8.4-10.2); Carbon Dioxide 25 mmol/L (22-30); Chloride 103 mmol/L (98-107); Estimated Creatinine Clearance > 125 ml/min; Glucose 72 mg/dl (70-99); Potassium 3.6 mmol/L (3.5-5.1); Sodium 136 mmol/L (135-145); Total Protein 6.4 g/dl (6.3-8.2); eGFR > 60.00
--- NOTE | 2024-12-03 06:58 | W.PN.HOSP.TC ---
Addendum entered and electronically signed by Gopal Phillips MD 12/04/24 15:00:
see update note
Original Note:
Today's Communication/Plan
-
Plan reviewed with attending
Likely choledocholithiasis after passed stone, possible viral exacerbation in setting of steatosis and prior alcohol use compounding
LFTs improving
f/u outpt with GI, adult nurse practitioner, PCP. Consider elective cholecystectomy for biliary colic.
Stable for discharge
Repeat CMP in 3-5 days
Assessment / Plan
Assessment / Plan
IMPRESSION:
39yoF PMH asthma, depression, remote hiatal hernia s/p david fundoplication presenting with new abdominal pain, vomiting, light stools, and dark urine concerning for choledocholithiasis.
Hx of similar symptoms self resolved about 6 months ago. Presented with elevated AST 1040, ALT 371, ALP 129, Tbili 1.7, Direct 0.7 Indicative of choledocholithiasis without concern for pancreatitis or infection. US demonstrated gallbladder
distention with common bile duct 5mm.
MRCP negative. No leukocytosis. LFTs improving. Likely choledocholithiasis s/p passed stone vs viral etiology of hepatitis. Hepatitis titers all negative except HbAbs indicative of vaccination. Pt had cold prior to episode, making it possible viral
illness exacerbated symptoms of steatosis, prior alcohol use, and possible stone that passed in CBD.
Discussed with pt alcohol cessation in setting of elevated LFTs and low fat diet for biliary colic. She admits to heavy alcohol use prior to this summer but none this month. Pt described this as a wake up call with plans of avoiding alcohol and
improving overall health.
PLAN:
#Transaminitis
#Choledocholithiasis with passed stone, likely biliary colic
#Viral illness
- Pale stools, dark urine, elevated Bilirubin, nausea and vomiting indicative of choledocholithiasis. US negative.
- LFTs downtrending. Follow. Hepatitis titers negative. Monoscreen, covid negative
- Replete electrolytes as needed.
- Observe off antibiotics. No WBC or fever, low suspicion for infectious etiology.
- MRCP negative for stone, liver 23.3cm with steatosis
- Recommend following up with surgeon outpt to consider elective cholecystectomy for biliary colic. Second presentation of symptoms
- F/u with GI outpt for steatosis
#Nausea, vomiting- resolved
- PRN zofran.
- Normal diet.
#Asthma
- PRN home albuterol
#Depression
- Stable on home lexapro
#ovarian cyst
- Incidental finding on MRI. Follow up outpt
#Thrombocytopenia
- Likely dilutional in setting of IVF. Hold heparin in case HIT
#hyponatremia resolved
Work note provided.
Anticipated Discharge: Today
Subjective/Interval History
-
Date of Service: December 03, 2024
Pt reports resolving abdominal pain with continued cramping. She still has light colored diarrhea but resolving urine color, nausea, and vomit.
Pt reports hx of heavy alcohol use with multiple drinks a day until this summer. She stated she has a family hx of AUD and decided to cut down starting in September. Since September, she reports having <10 drinks a month with no alcohol in November due to
her abdominal pain.
Objective Data
-
Labs:
Laboratory Results
12/03/24
05:45
WBC 6.3
Hgb 12.4
Hct 37.7
Plt Count 90 L
Sodium 136
Potassium 3.6
Chloride 103
Carbon Dioxide 25
BUN < 2 L
Creatinine 0.6
Glucose 72
Calcium 8.0 L
Total Bilirubin 1.0
AST 555 H*
ALT 255 H
Alkaline Phosphatase 105
Vital Signs:
Vital Signs
Temp Pulse Resp BP Pulse Ox
99.2 F 88 18 140/97 99
12/02/24 23:06 12/02/24 23:06 12/02/24 23:06 12/02/24 23:06 12/02/24 23:06
I&O
12/01/24 12/02/24 12/03/24
06:59 06:59 06:59
Intake Total 1919
Balance 1919
Physical Exam
-
General: Well Developed, Well Nourished, No Apparent Distress and Comfortable
HEENT: Normocephalic, Atraumatic and Moist Mucous Membranes
Respiratory: Clear to Auscultation and Non Labored Respirations
Cardiac: Regular Rhythm and S1/S2
GI: Soft, Nondistended and Tender (epigastric region tender to deep palpation)
Musculoskeletal: No Clubbing, No Cyanosis and No Edema
Skin: Warm and Dry
Neuro: AO x 3, No Motor Deficits and Nonfocal/Grossly Intact
Psych: Calm
[2024-12-03 07:55] VITALS: BP 152/103
--- NOTE | 2024-12-03 08:00 | W.PN.GI.CBS2 ---
Today's Communication / Plan
-
Viral hepatitis serologies pending
Trend LFTs and platelets
Will advance diet
Assessment / Plan
-
Pt is a 39yo with hx asthma, anxiety, GERD with prior David Fundoplication at age 2 1/2 (pt recall hx asthma and aspiration PNA prior to surgery), prior knee surgery, anxiety, depression with wt gain over last 2 years. She began with episode on
October with abdominal pain and vomiting and now recurrent episode. Symptoms occur about 15 minutes after eating. On admission noted iwth bili 2.2, AST 1027, ALT 340, alk phos 143-- with noted prior elevation in May. Pt also noted with drop in
Platelets to 105 after admission. US with noted hepatomegaly and fatty infiltration, GB distended without stone or thickening, CBD 5 mm. She has seen GI MD in distant past with hx prior EGD, UGI testing with hx david and GERD. She admits pain
is sharp and feeling of pressure. She did see dark urine and li stools but denies dysphagia, diarrhea, blood or black in stools. No anticoagulation. + few doses onf Aleve as needed monthly for menstrual cramps. + ETOH social on weekends.
-epigastric pain with nausea and vomiting
-elevated LFT's with prior elevation in past
-hx GERD- david fundoplication at age 2 1/2
-thrombocytopenia after admission
-social ETOH use
-wt gain
-fatty liver
other med problems:
-asthma
-anxiety/depression
-prior knee surgery
Assessment and plan
1. Nausea vomiting diarrhea with abdominal pain and significant transaminitis with mildly elevated bilirubin. Could have passed a stone, MRCP is negative for CBD stone also no gallstones noted on ultrasound or MRI. LFTs are trending down.
Possible viral syndrome monoscreen was negative. Viral hepatitis serologies are pending need to rule out possible acute hepatitis A. She denies any recent antibiotic use. No travel or exposure to sick contacts. Nausea vomiting has resolved but
diarrhea persist. Will also check for stool studies. She is nontoxic, okay to give her a dose of Pepto-Bismol or Imodium after collecting stool sample. Continue to trend LFTs. She also at baseline had mildly elevated transaminases from fatty
liver and MASLD. Will need follow-up as outpatient. Will advance diet
2. She also has an ovarian cyst follow-up with her PARK ATTENDANT.
3. History of GERD and hiatal hernia status post David's fundoplication as a child. Doing well with no symptoms of reflux currently.
4. She also has thrombocytopenia since admission will need to rule out possible HIT discussed with Dr. Phillips may need to DC her heparin for now, continue to trend, could also be related to possible viral syndrome
Subjective
Subjective
Date of Service: December 03, 2024
No further nausea or vomiting abdominal pain has markedly improved. Still has diarrhea with some mucus no blood. She is tolerating clear liquids. Remains afebrile. Transaminases trending down.
Objective
Data Reviewed
Laboratory Data:
Laboratory Results
12/03/24 05:45
12/03/24 05:45
Laboratory Results
PT 13.4 Sec (11.4-14.6) 12/02/24 09:33
INR 0.97 12/02/24 09:33
Total Bilirubin 1.0 mg/dl (0.2-1.3) 12/03/24 05:45
AST 555 U/L (14-36) H* 12/03/24 05:45
ALT 255 U/L (0-35) H 12/03/24 05:45
Alkaline Phosphatase 105 U/L (38-126) 12/03/24 05:45
Lipase 299 U/L (23-300) 12/01/24 15:56
Vital Signs and I&O:
Vital Signs
Temp Pulse Resp BP Pulse Ox
99.2 F 88 18 140/97 99
12/02/24 23:06 12/02/24 23:06 12/02/24 23:06 12/02/24 23:06 12/02/24 23:06
I&O
12/02/24 12/03/24 12/04/24
06:59 06:59 06:59
Intake Total 1919
Balance 1919
Physical Exam
Physical Exam
Cardiology: Normal Sinus Rhythm
Pulmonary: Clear
GI: Soft, Non Distended, Non Tender and Normal Bowel Sounds
[2024-12-03] MEDS: HEPARIN 5000 UNITS SC (08:28)
[2024-12-03] MEDS: LEXAPRO 5 MG PO (08:29)
--- NOTE | 2024-12-03 09:15 | PTCARENOTE ---
Stool sample sent for brown/green moderate amount of liquid stool; patient placed on Enhanced Precautions while awaiting micro results.
--- NOTE | 2024-12-03 12:16 | CM ---
CM following re: discharge planning.
Reviewed pt's chart, met with pt.
Discharge order noted. Pt is aware, expressed her agreement and she stated her boyfriend Ben will transport home.
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
Pt has no insurance and pt stated she just got a new job and her working insurance will start in January. In meantime pt applying for insurance to [employer].
No after care VN needs identified.
D/C plan: home with no needs anticipated. Boyfriend to transport.
--- NOTE | 2024-12-03 13:11 | W.PN.UPDATE ---
Update Note
Progress Note Update
Choledocholithiasis with likely biliary colic, likely passed stone
MRCP without evidence of choledocholithiasis
Surgery follow up
Trend LFTs
PPI
Antiemetics
Analgesia
Transaminitis with an indirect hyperbilirubinemia, improving, likely related to passed stonex
Thrombocytopenia�acute/new
HIT score 1
Hold hep though less likely HIT
Hypokalemia
Replete
Left overian cyst
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
[2024-12-03 14:11] VITALS: BP 144/93
--- NOTE | 2024-12-03 15:01 | W.DCSUMMARY ---
Discharge Summary
Discharge Data
Date of Admission: 12/01/24
Date of Discharge: 12/03/24
-
Pending Results: No
Hospital Course
IMPRESSION:
39yoF PMH asthma, depression, remote hiatal hernia s/p david fundoplication presenting with new abdominal pain, vomiting, light stools, and dark urine concerning for choledocholithiasis.
Hx of similar symptoms self resolved about 6 months ago. Presented with elevated AST 1040, ALT 371, ALP 129, Tbili 1.7, Direct 0.7 Indicative of choledocholithiasis without concern for pancreatitis or infection. US demonstrated gallbladder
distention with common bile duct 5mm. MRCP negative for stone, liver distended 23.3cm with steatosis. Incidental finding of L ovarian cyst recommended follow up with gynecology. No leukocytosis. LFTs improving AST 555 ALT 255 ASLP 105. Monoscreen,
covid negative. Likely choledocholithiasis s/p passed stone vs viral etiology of hepatitis. Hepatitis titers all negative except HbAbs indicative of vaccination. Pt had cold prior to episode, making it possible viral illness exacerbated symptoms of
steatosis, prior alcohol use, and possible stone that passed in CBD. Pt received IVF and slowly resumed normal diet.
Discussed with pt alcohol cessation in setting of elevated LFTs and low fat diet for biliary colic. She reports heavy alcohol use prior to this summer but none this month.
- Recommend following up with surgeon outpt to consider elective cholecystectomy for biliary colic. Second presentation of symptoms
- F/u with GI outpt for steatosis
- Follow up outpt with regulator mechanic with pelvic US for incidental benign cyst seen on MRI
Discharge Plan
-
Patient Disposition: Home (Routine Discharge)
Discharge Diagnosis/Procedures: Transient Choledocholithiasis with likely biliary colic
Condition: Good
Diet: As tolerated
Additional Diets: recommend lower fat content
Activity: No restrictions
Driving Restrictions: As prior to admission
Bathing Restrictions: None
Blood Work: CBC and CMP in 3-5 days
Referrals:
Missy Servin DO [Family Provider, [facility]]
Additional Discharge Medication Instructions: Follow up with your PCP with lab test results.
Follow up with your regulator mechanic regarding the incidental finding of a L ovarian cyst found on the MRI.
Follow up with a hot plate plywood press feeder outpatient for your liver findings. Recommend seeing a surgeon for an elective cholecystectomy due to biliary colic.
Prescriptions:
Continued
albuterol sulfate 90 mcg/actuation Hfa Aerosol Inhaler
2 puff INHALATION R [id number] PRN (Reason: sob)
escitalopram oxalate [Lexapro] 5 mg Tablet
5 mg PO DAILY
Discharge Orders:
Discharge Patient (As Directed); Ordered 12/03/24
Ordered By: Missy Moffett
Discharge Date and Time
Print Language: FAROESE
== END 2024-12-03 14:45 | disposition home or self-care (01) | DRG 445 ==
LOC: 2 SOUTH 21:06
PROVIDERS: Nurse Practitioner; Nurse Practitioner Adult Health; Student in an Organized Health Care Education/Training Program; ADMITTING PHYSICIAN Hospitalist; ATTENDING PHYSICIAN Hospitalist; CONSULT PHYSICIAN Internal Medicine Gastroenterology; EMERGENCY PHYSICIAN Emergency Medicine; FAMILY PHYSICIAN Family Medicine
DX: K80.50 Calculus of bile duct without cholangitis or cholecystitis without obstruction (principal); E87.1 Hypo-osmolality and hyponatremia; B34.9 Viral infection, unspecified; K76.0 Fatty (change of) liver, not elsewhere classified; F41.9 Anxiety disorder, unspecified; F32.A Depression, unspecified; K21.9 Gastro-esophageal reflux disease without esophagitis; R16.0 Hepatomegaly, not elsewhere classified; E66.9 Obesity, unspecified; Z68.37 Body mass index [BMI] 37.0-37.9, adult; D69.6 Thrombocytopenia, unspecified; K44.9 Diaphragmatic hernia without obstruction or gangrene; J45.909 Unspecified asthma, uncomplicated; E87.6 Hypokalemia; N83.202 Unspecified ovarian cyst, left side; Z87.891 Personal history of nicotine dependence; R79.89 Other specified abnormal findings of blood chemistry
CPT/HCPCS: 74183; 76700; 80053; 81003; 81015; 82248; 83690; 84703; 85025; 85027; 85610; 86308; 86705; 86706; 86709; 86803; 87045; 87046; 87086; 87324; 87328; 87329; 87340; 87427; 87449; 99285; A9575